=== PATIENT | female | born 2000 | race Caucasian/White ===

== ENCOUNTER 2024-09-08 20:47 | Emergency (ER) | payer OTHER ==
[2024-09-08 20:54] VITALS: RESP 18; TEMP 97.7
--- NOTE | 2024-09-08 21:22 | CT ---
EXAMINATION TYPE: CT brain allan escalante con DATE OF EXAM: 09/08/2024 COMPARISON: NONE HISTORY: Seizure. Trauma injury with pain CT DLP: 1248.1 mGycm. Automated Exposure Control for Dose Reduction was Utilized. TECHNIQUE: CT scan of the head and cervical spine are performed without contrast. FINDINGS: There is no acute intracranial hemorrhage, mass effect, or midline shift identified. The ventricles and sulci are within normal limits in size. [place]-white matter differentiation is maintain ed. The calvarium is intact. The globes are intact and the visualized sinuses are clear. Cervical spine is visualized in its entirety from C1 through upper thoracic levels and demonstrates s atisfactory alignment without evidence of acute fracture or dislocation. Prevertebral soft tissue ap pears within normal limits. The C1-C2 articulation is within normal limits on the coronal images. V ertebral body heights and disc space heights are within normal limits. Spinal canal is preserved. Imelda g apices show no pneumothorax. Normal sized thyroid gland is seen. IMPRESSION: 1. There is no acute fracture or dislocation evident in the cervical spine. 2. No acute intracranial hemorrhage or midline shift is seen. [facility], , 09/08/2024 9:20 PM
--- NOTE | 2024-09-08 21:36 | ED ---
General Adult HPI - General Chief complaint: Seizure Stated complaint: sesizure Time Seen by Provider: 09/08/24 21:11 Source: patient, EMS Mode of arrival: EMS Limitations: no limitations - History of Present Illness Initial comments: This patient is a 23-year-old woman who is sent here from [facility] to have evaluation after having had syncopal episode versus possible seizure. The patient reports that she had been walking in the facility and then the next thing she remembers was waking up on the ground with 2 of the staff members over her. She states she was subsequently shown video that showed her falling to the floor and being unconscious for just a few seconds, and then the staff was over her and speaking to her. She states that she thinks she remembers most of the details. She was not shown any footage of tonic-clonic movements. She did not have loss of continence. Patient states that it does feel like she struck the left occipital area of her head, but she denies significant pain there. She states it is only mildly tender if she touches the area. She is denying any neurologic symptoms. The patient is at [facility] for alcohol rehab but has been there since the . Her last drink was 2 days before that. She has not had withdrawal seizures. She does not feel anxious or tremulous. No history of seizure Onset/Timin -: hour(s) Location: head Severity scale (1-10): 1 Quality: dull Consistency: constant Improves with: none Worsens with: none Associated Symptoms: denies other symptoms Treatments Prior to Arrival: none - Related Data Home Medications Medication Instructions Recorded Confirmed Acetaminophen Tab [Tylenol] 650 mg PO Q4H PRN MDD 4 DOSES 09/09/24 09/09/24 Calcium Phos/D3/Magnesium/Zinc 1 tab PO TID PRN 09/09/24 09/09/24 [Rzudfze-Qgn-Hfxf-Vitamin D3] Docusate [Colace] 100 mg PO BID PRN 09/09/24 09/09/24 FLUoxetine HCL [PROzac] 20 mg PO DAILY 09/09/24 09/09/24 Ibuprofen [Motrin Ib] 600 mg PO Q6H PRN 09/09/24 09/09/24 Loperamide HCl [Imodium A-D] 4 mg PO QID PRN MDD 8 TABLETS 09/09/24 09/09/24 Melatonin 10 mg PO HS 09/09/24 09/09/24 Multivitamins, Thera [Multivitamin 1 tab PO DAILY 09/09/24 09/09/24 (formulary)] Mylanta 30 ml PO Q4H PRN 09/09/24 09/09/24 Thiamine [Vitamin B-1] 100 mg PO DAILY 09/09/24 09/09/24 busPIRone HCl [Buspar] 5 mg PO DAILY PRN 09/09/24 09/09/24 ondansetron HCL [Zofran] 8 mg PO Q6H PRN 09/09/24 09/09/24 traZODone HCL [Desyrel] 50 - 150 mg PO HS 09/09/24 09/09/24 Allergies Allergy/AdvReac Type Severity Reaction Status Date / Time No Known Allergies Allergy Verified 09/09/24 11:02 Review of Systems ROS Statement: Those systems with pertinent positive or pertinent negative responses have been documented in the HPI. ROS Other: All systems not noted in ROS Statement are negative. Constitutional: Denies: fever, chills, weakness Eyes: Denies: eye pain, vision change ENT: Denies: ear pain, hearing loss, epistaxis Respiratory: Denies: cough, dyspnea Cardiovascular: Denies: chest pain, palpitations, edema Gastrointestinal: Denies: abdominal pain, nausea, vomiting Genitourinary: Denies: dysuria, abnormal menses Musculoskeletal: Denies: back pain, arthralgia Skin: Denies: rash Neurological: Reports: as per HPI. Denies: headache, weakness, numbness Hematological/Lymphatic: Denies: easy bleeding Past Medical History Past Medical History: No Reported History History of Any Multi-Drug Resistant Organisms: None Reported Past Surgical History: No Surgical Hx Reported Past Psychological History: Anxiety, Depression Smoking Status: Current every day smoker Past Alcohol Use History: Daily, Heavy Past Drug Use History: Marijuana General Exam Limitations: no limitations General appearance: alert, in no apparent distress Head exam: Present: atraumatic, normocephalic Eye exam: Present: normal appearance. Absent: scleral icterus, conjunctival injection ENT exam: Present: normal oropharynx Neck exam: Present: normal inspection Respiratory exam: Present: normal lung sounds bilaterally. Absent: respiratory distress, wheezes, rales, rhonchi, stridor, accessory muscle use Cardiovascular Exam: Present: regular rate, normal rhythm, normal heart sounds. Absent: systolic murmur, diastolic murmur, rubs, gallop GI/Abdominal exam: Present: soft. Absent: distended, tenderness, guarding, rebound, rigid, mass Extremities exam: Present: normal inspection, normal capillary refill. Absent: pedal edema, calf tenderness Back exam: Present: normal inspection. Absent: CVA tenderness (R), CVA tenderness (L), vertebral tenderness Neurological exam: Present: alert, oriented X3, CN II-XII intact, normal gait. Absent: motor sensory deficit Skin exam: Present: warm, dry, intact, normal color. Absent: rash Course Vital Signs 09/08/24 09/08/24 20:48 23:41 Temperature 97.7 F Pulse Rate 68 75 Respiratory 18 18 Rate Blood Pressure 149/88 139/97 O2 Sat by Pulse 95 99 Oximetry Medical Decision Making - Medical Decision Making Patient is a 23-year-old woman here for evaluation of syncopal episode versus seizure. Based on the history that I am able to recover there does not appear t o be likelihood of seizure activity as the patient did not have prolonged unconsciousness or postictal period. There was no loss of continence. The patient is not manifesting any signs of withdrawal. Discussed with the patient the further evaluation and at this point I find no evidence of serious head injury at this point. The patient will be at a skilled care facility and can have neuro checks over the course of the post discharge.. Patient will be given close head injury instructions. The patient had CT scan of the brain that I interpreted as negative for acute bony injury, negative for acute intracranial hemorrhage, mass effect or midline shift Was pt. sent in by a medical professional or institution (, PA, [employer]IL W[employer]ER, urgent care, hospital, or half-way...) When possible be specific @ -[Patient is sent from [facility] Did you speak to anyone other than the patient for history (EMS, parent, family, police, friend...)? What history was obtained from this source @ -[No] Did you review nursing and triage notes (agree or disagree)? Why? @ -[I reviewed and agree with nursing and triage notes] Were old charts reviewed (outside hosp., previous admission, EMS record, old EKG, old radiological studies, urgent care reports/EKG's, half-way records)? Report findings @ -[No old charts were reviewed] Differential Diagnosis (chest pain, altered mental status, abdominal pain women, abdominal pain men, vaginal bleeding, weakness, fever, dyspnea, syncope, headache, dizziness, GI bleed, back pain, seizure, CVA, palpatations, mental health, musculoskeletal)? @ -[Differential Syncope: Valvular disease, hypertrophic cardiomyopathy, pulmonary embolism, tamponade, tachycardia, bradycardia, ND, hypovolemia, hemorrhage, dissection, anemia, intracranial hemorrhage, seizure, hypoglycemia, carbon monoxide poisoning, this is not meant to be an all-inclusive list. EKG interpreted by me (3pts min.). @ -[As above] X-rays interpreted by me (1pt min.). @ -[None done] CT interpreted by me (1pt min.). @ -[I interpreted as above U/S interpreted by me (1pt. min.). @ -[None done] What testing was considered but not performed or refused? (CT, X-rays, U/S, la bs)? Why? @ -[None] What meds were considered but not given or refused? Why? @ -[None] Did you discuss the management of the patient with other professionals (professionals i.e. , PA, [employer] W[employer]ER, lab, RT, psych nurse, social human services assistants, pediatric anesthesiologist, teacher, principal gifts officer, upper caser)? Give summary @ -[No] Was smoking cessation discussed for >3mins.? @ -[No] Was critical care preformed (if so, how long)? @ -[No] Were there social determinants of health that impacted care today? How? (Homelessness, low income, unemployed, alcoholism, drug addiction, transportation, low edu. Level, literacy, decrease access to med. care, correction, rehab)? @ -[No] Was there de-escalation of care discussed even if they declined (Discuss DNR or withdrawal of care, Hospice)? DNR status @ -[No] What co-morbidities impacted this encounter? (DM, HTN, Smoking, COPD, CAD, Cancer, CVA, ARF, Chemo, Hep., AIDS, mental health diagnosis, sleep apnea, morbid obesity)? @ -[Alcohol withdrawal Was patient admitted / discharged? Hospital course, mention meds given and route, prescriptions, significant lab abnormalities, going to OR and other pertinent info. @ -[See above Undiagnosed new problem with uncertain prognosis? @ -[No] Drug Therapy requiring intensive monitoring for toxicity (Heparin, Nitro, Insulin, Cardizem)? @ -[No] Were any procedures done? @ -[No] Diagnosis/symptom? @ -[Acute syncopal episode Acute, or Chronic, or Acute on Chronic? @ -[Acute Uncomplicated (without systemic symptoms) or Complicated (systemic symptoms)? @ -[Uncomplicated Side effects of treatment? @ -[No] Exacerbation, Progression, or Severe Exacerbation? @ -[No] Poses a threat to life or bodily function? How? (Chest pain, USA, ND, pneumonia, PE, COPD, DKA, ARF, appy, cholecystitis, CVA, Diverticulitis, Homicidal, Suicidal, threat to staff... and all critical care pts) @ -[No] All treatments are based on ideal body weight as in ED triage - Lab Data Result diagrams: 09/08/24 22:18 09/08/24 22:18 Lab Results 09/08/24 09/08/24 Range/Units 22:18 22:18 WBC 10.2 (3.8-10.6) k/uL RBC 3.77 L (3.80-5.40) m/uL Hgb 12.3 (11.4-16.0) gm/dL Hct 38.7 (34.0-46.0) % MCV 102.6 H (80.0-100.0) fL MCH 32.6 (25.0-35.0) pg MCHC 31.8 (31.0-37.0) g/dL RDW 15.3 (11.5-15.5) % Plt Count 123 L (150-450) k/uL MPV 8.6 Neutrophils % 73 % Lymphocytes % 21 % Monocytes % 4 % Eosinophils % 1 % Basophils % 0 % Neutrophils # 7.4 (1.3-7.7) k/uL Lymphocytes # 2.1 (1.0-4.8) k/uL Monocytes # 0.4 (0-1.0) k/uL Eosinophils # 0.1 (0-0.7) k/uL Basophils # 0.0 (0-0.2) k/uL Macrocytosis Slight Sodium 136 L (137-145) mmol/L Potassium 3.7 (3.5-5.1) mmol/L Chloride 101 (98-107) mmol/L Carbon Dioxide 24 (22-30) mmol/L Anion Gap 11 mmol/L BUN 9 (7-17) mg/dL Creatinine 0.58 (0.52-1.04) mg/dL Est GFR (CKD-EPI)AfAm >90 (>60 ml/min/1.73 sqM) Est GFR (CKD-EPI)NonAf >90 (>60 ml/min/1.73 sqM) Glucose 91 (74-99) mg/dL Calcium 9.5 (8.4-10.2) mg/dL Total Bilirubin 0.8 (0.2-1.3) mg/dL AST 37 H (14-36) U/L ALT 26 (4-34) U/L Alkaline Phosphatase 65 (38-126) U/L Total Protein 7.5 (6.3-8.2) g/dL Albumin 4.5 (3.5-5.0) g/dL Disposition Clinical Impression: Head injury Narrative: syncope versus possible seizure Disposition: HOME SELF-CARE Condition: Good Instructions (If sedation given, give patient instructions): Head Injury (ED) Is patient prescribed a controlled substance at d/c from ED?: No Referrals: Nonstaff,Physician [Primary Care Provider] - 1-2 days
[2024-09-08 22:26] LABS: Basophils % (A) 0 %; Eosinophils # (A) 0.1 k/uL (0-0.7); Eosinophils % (A) 1 %; HCT 38.7 % (34.0-46.0); HGB 12.3 gm/dL (11.4-16.0); Lymphocytes # (A) 2.1 k/uL (1.0-4.8); Lymphocytes % (A) 21 %; MCH 32.6 pg (25.0-35.0); MCHC 31.8 g/dL (31.0-37.0); MCV 102.6 fL (80.0-100.0); Macrocytosis Slight; Mean Platelet Volume 8.6; Monocytes # (A) 0.4 k/uL (0-1.0); Monocytes % (A) 4 %; Neutrophils # (A) 7.4 k/uL (1.3-7.7); Neutrophils % (A) 73 %; Platelet Count 123 k/uL (150-450); RBC 3.77 m/uL (3.80-5.40); RDW 15.3 % (11.5-15.5); WBC 10.2 k/uL (3.8-10.6)
[2024-09-08 22:38] LABS: ALT 26 U/L (4-34); AST 37 U/L (14-36); African American GFR (CKD) >90 (>60 ml/min/1.73 sqM); Albumin 4.5 g/dL (3.5-5.0); Alkaline Phosphatase 65 U/L (38-126); Anion Gap 11 mmol/L; Blood Urea Nitrogen 9 mg/dL (7-17); Calcium 9.5 mg/dL (8.4-10.2); Carbon Dioxide 24 mmol/L (22-30); Chloride 101 mmol/L (98-107); Glucose 91 mg/dL (74-99); Non-African American GFR(CKD) >90 (>60 ml/min/1.73 sqM); Potassium 3.7 mmol/L (3.5-5.1); Sodium 136 mmol/L (137-145); Total Bilirubin 0.8 mg/dL (0.2-1.3); Total Protein 7.5 g/dL (6.3-8.2)
[2024-09-08 23:43] VITALS: BP 139/97; PULSE 75
== END 2024-09-08 23:43 | disposition home or self-care (01) ==
LOC: EC 20:47
DX: S09.90XA Unspecified injury of head, initial encounter (principal); F10.239 Alcohol dependence with withdrawal, unspecified; F17.200 Nicotine dependence, unspecified, uncomplicated; X58.XXXA Exposure to other specified factors, initial encounter
CPT/HCPCS: 36415; 70450; 72125; 80053; 85025; 99285

== ENCOUNTER 2024-09-09 03:03 | Observation (INO) | payer OTHER ==
[2024-09-09] MEDS: LORazepam 2 MG/ML INJ IM STA (03:17)
--- NOTE | 2024-09-09 03:49 | ED ---
General Adult HPI - General Chief complaint: Psychiatric Symptoms Stated complaint: Petition Time Seen by Provider: 09/09/24 03:28 Source: EMS Mode of arrival: EMS Limitations: no limitations - History of Present Illness Initial comments: This patient is a 23-year-old woman who is here from [facility] to have reevaluation. The patient had been seen yesterday for syncopal episode versus seizure. Per the patient's description here it seem like her earlier episode was most likely to be syncope. The patient had gone back to [facility] where they felt she was not quite right and they sent her here she did have a another seizure. Patient currently denying headache. She is alert and responsive. Patient has no previous seizure history. She did stop drinking approximately 5 days ago. -: hour(s) Severity scale (1-10): 0 Consistency: now resolved Improves with: none Worsens with: none Associated Symptoms: other Treatments Prior to Arrival: none - Related Data Allergies Allergy/AdvReac Type Severity Reaction Status Date / Time No Known Allergies Allergy Verified 09/08/24 20:54 Review of Systems ROS Statement: Those systems with pertinent positive or pertinent negative responses have been documented in the HPI. ROS Other: All systems not noted in ROS Statement are negative. Constitutional: Denies: fever, chills, weakness Eyes: Denies: eye pain, vision change Respiratory: Denies: cough, dyspnea Cardiovascular: Denies: chest pain, palpitations, edema Gastrointestinal: Denies: abdominal pain, nausea, vomiting, diarrhea Genitourinary: Denies: dysuria, hematuria Musculoskeletal: Denies: back pain Skin: Denies: rash Neurological: Reports: other (Seizure). Denies: headache, weakness Psychiatric: Denies: anxiety Past Medical History Past Medical History: No Reported History History of Any Multi-Drug Resistant Organisms: None Reported Past Surgical History: No Surgical Hx Reported Past Psychological History: Anxiety, Depression Smoking Status: Current every day smoker Past Alcohol Use History: Daily, Heavy Past Drug Use History: Marijuana General Exam Limitations: no limitations General appearance: alert, in no apparent distress Head exam: Present: atraumatic, normocephalic Eye exam: Present: normal appearance. Absent: scleral icterus, conjunctival injection ENT exam: Present: normal oropharynx Neck exam: Present: normal inspection, full ROM. Absent: tenderness, meningismus Respiratory exam: Present: normal lung sounds bilaterally. Absent: respiratory distress, wheezes, rales, rhonchi, stridor, accessory muscle use Cardiovascular Exam: Present: regular rate, normal rhythm, normal heart sounds. Absent: systolic murmur, diastolic murmur, rubs, gallop GI/Abdominal exam: Present: soft. Absent: distended, tenderness, guarding, rebound, rigid, mass Extremities exam: Present: normal inspection, normal capillary refill. Absent: pedal edema, calf tenderness Back exam: Present: normal inspection. Absent: CVA tenderness (R), CVA tenderness (L) Neurological exam: Present: alert, oriented X3, CN II-XII intact. Absent: motor sensory deficit Skin exam: Present: warm, dry, intact, normal color. Absent: rash Course Vital Signs 09/09/24 09/09/24 03:05 04:00 Temperature 98.2 F Pulse Rate 92 Respiratory 18 Rate Blood Pressure 124/57 O2 Sat by Pulse 97 Oximetry Medical Decision Making - Medical Decision Making Patient is a 23-year-old woman with what sounds like 2 seizure episodes. She has returned to baseline. The patient will be admitted to have neurology consultation. Her other workup here did include CT that was unremarkable. - Lab Data Result diagrams: 09/09/24 04:58 09/09/24 04:58 Lab Results 09/09/24 09/09/24 Range/Units 04:58 04:58 WBC 11.2 H (3.8-10.6) k/uL RBC 3.49 L (3.80-5.40) m/uL Hgb 11.6 (11.4-16.0) gm/dL Hct 35.6 (34.0-46.0) % MCV 102.1 H (80.0-100.0) fL MCH 33.2 (25.0-35.0) pg MCHC 32.6 (31.0-37.0) g/dL RDW 15.6 H (11.5-15.5) % Plt Count 107 L (150-450) k/uL MPV 9.0 Neutrophils % 80 % Lymphocytes % 14 % Monocytes % 4 % Eosinophils % 1 % Basophils % 0 % Neutrophils # 9.0 H (1.3-7.7) k/uL Lymphocytes # 1.6 (1.0-4.8) k/uL Monocytes # 0.4 (0-1.0) k/uL Eosinophils # 0.2 (0-0.7) k/uL Basophils # 0.0 (0-0.2) k/uL Macrocytosis Slight Sodium 133 L (137-145) mmol/L Potassium 3.3 L (3.5-5.1) mmol/L Chloride 97 L (98-107) mmol/L Carbon Dioxide 26 (22-30) mmol/L Anion Gap 10 mmol/L BUN 7 (7-17) mg/dL Creatinine 0.59 (0.52-1.04) mg/dL Est GFR (CKD-EPI)AfAm >90 (>60 ml/min/1.73 sqM) Est GFR (CKD-EPI)NonAf >90 (>60 ml/min/1.73 sqM) Glucose 81 (74-99) mg/dL Calcium 9.6 (8.4-10.2) mg/dL Disposition Clinical Impression: Seizure Disposition: ADMITTED IP TO THIS HOSP Condition: Good Is patient prescribed a controlled substance at d/c from ED?: No
[2024-09-09] MEDS ORDERED: LORazepam 2 MG/ML INJ IV PRN ×3 (04:27)
[2024-09-09] MEDS ORDERED: chlordiazePOXIDE 25 MG CAP PO PRN (04:27)
[2024-09-09 05:05] LABS: Basophils % (A) 0 %; Eosinophils # (A) 0.2 k/uL (0-0.7); Eosinophils % (A) 1 %; HCT 35.6 % (34.0-46.0); HGB 11.6 gm/dL (11.4-16.0); Lymphocytes # (A) 1.6 k/uL (1.0-4.8); Lymphocytes % (A) 14 %; MCH 33.2 pg (25.0-35.0); MCHC 32.6 g/dL (31.0-37.0); MCV 102.1 fL (80.0-100.0); Macrocytosis Slight; Monocytes # (A) 0.4 k/uL (0-1.0); Monocytes % (A) 4 %; Neutrophils % (A) 80 %; Platelet Count 107 k/uL (150-450); RBC 3.49 m/uL (3.80-5.40); RDW 15.6 % (11.5-15.5); WBC 11.2 k/uL (3.8-10.6)
[2024-09-09] MEDS ORDERED: NALOXONE 0.4 MG/ML 1 ML VIAL IV PRN (05:05)
[2024-09-09 05:18] LABS: African American GFR (CKD) >90 (>60 ml/min/1.73 sqM); Anion Gap 10 mmol/L; Blood Urea Nitrogen 7 mg/dL (7-17); Calcium 9.6 mg/dL (8.4-10.2); Carbon Dioxide 26 mmol/L (22-30); Chloride 97 mmol/L (98-107); Glucose 81 mg/dL (74-99); Non-African American GFR(CKD) >90 (>60 ml/min/1.73 sqM); Potassium 3.3 mmol/L (3.5-5.1); Sodium 133 mmol/L (137-145)
[2024-09-09] MEDS: SODIUM CHLORIDE 0.9% 1,000 ML IV SCH (05:58)
[2024-09-09] MEDS: FAMOTIDINE 20 MG TAB PO SCH (11:46)
[2024-09-09] MEDS: POTASSIUM CHLORIDE ER 10 MEQ TAB.ER.PRT PO SCH (11:51)
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
--- NOTE | 2024-09-09 14:28 | P.CNNES ---
History of Present Illness Consult date: 09/09/24 Requesting physician: Js Matthews Reason for Consult: multiple seizure History of Present Illness: This is a 23-year-old woman who was transferred from [facility] because of seizure-like activity. Patient states that she has significant alcohol use and she was at [facility]. She stated that 2 days ago while at [facility] she had a seizure-like activity that she was notified but does not recall the episodes. She denies any urinary or bowel incontinence. There is no tongue bite. She denies any episode yesterday but per the ED physician the patient came to our facility for reevaluation because syncopal episode versus seizure. Patient denies any warning signs. Denies any focal weakness, numbness, head ache. She feels back to baseline. Denies any prior history of seizures in the past. She stated her last drink she thinks was about 9 to 10 days ago from yesterday. She does use marijuana. According to the patient yesterday she was notified that she was rude to the staff members but denies having any seizure or passing out episode yesterday. ED physician her last drink was approximately 5 days ago. Some of the workup during this hospital visit consisted of: I reviewed the lab workup. CT of the head and CT cervical spine on 09/08/2024 is reported as no acute fracture or dislocation in the cervical spine. No acute intracranial hemorrhage or midline shift is seen. I personally reviewed the CT of the head and agree with the report. Review of Systems As per HPI. Past Medical History Past Medical History: No Reported History History of Any Multi-Drug Resistant Organisms: None Reported Past Surgical History: No Surgical Hx Reported Past Psychological History: Anxiety, Depression Smoking Status: Current every day smoker Past Alcohol Use History: Daily, Heavy Past Drug Use History: Marijuana Medications and Allergies Home Medications Medication Instructions Recorded Confirmed Type Acetaminophen Tab [Tylenol] 650 mg PO Q4H PRN MDD 4 DOSES 09/09/24 09/09/24 History Calcium Phos/D3/Magnesium/Zinc 1 tab PO TID PRN 09/09/24 09/09/24 History [Cflwzzl-Cue-Eorw-Vitamin D3] Docusate [Colace] 100 mg PO BID PRN 09/09/24 09/09/24 History FLUoxetine HCL [PROzac] 20 mg PO DAILY 09/09/24 09/09/24 History Ibuprofen [Motrin Ib] 600 mg PO Q6H PRN 09/09/24 09/09/24 History Loperamide HCl [Imodium A-D] 4 mg PO QID PRN MDD 8 TABLETS 09/09/24 09/09/24 History Melatonin 10 mg PO HS 09/09/24 09/09/24 History Multivitamins, Thera [Multivitamin 1 tab PO DAILY 09/09/24 09/09/24 History (formulary)] Mylanta 30 ml PO Q4H PRN 09/09/24 09/09/24 History Thiamine [Vitamin B-1] 100 mg PO DAILY 09/09/24 09/09/24 History busPIRone HCl [Buspar] 5 mg PO DAILY PRN 09/09/24 09/09/24 History ondansetron HCL [Zofran] 8 mg PO Q6H PRN 09/09/24 09/09/24 History traZODone HCL [Desyrel] 50 - 150 mg PO HS 09/09/24 09/09/24 History Allergies Allergy/AdvReac Type Severity Reaction Status Date / Time No Known Allergies Allergy Verified 09/09/24 11:02 Physical Examination - Vital Signs Vital Signs: Vital Signs Temp Pulse Resp BP Pulse Ox 09/09/24 11:20 84 22 133/93 98 09/09/24 07:41 66 20 129/86 96 09/09/24 04:00 124/57 09/09/24 03:05 98.2 F 92 18 97 Intake and Output 09/08/24 09/09/24 09/09/24 22:59 06:59 14:59 Other: Weight 68.039 kg GENERAL: The patient is lying in bed and is not in acute distress. NEUROLOGICAL: Higher mental function: The patient is awake, alert, oriented to self, place and time. Patient is following commands. No aphasia and no neglect. Cranial nerves: The pupils are round, equal and reactive to light and accommodation. Visual pireson are full to confrontation throughout. Extraocular movement is intact no nystagmus is noted. Facial sensation is normal to touch throughout. The facial strength is normal throughout. Hearing is normal bilaterally to hand rub. Tongue is midline and moved [id number] without any difficulty. No dysarthria is noted. Shoulder shrug is normal bilaterally. Motor: The strength is 5 over 5 throughout. Normal tone and bulk. Cerebellum: Normal finger to nose heel to thurman bilaterally. Sensation: Sensation is normal to touch throughout. Reflexes (right/left): 2+ throughout. Plantars are downgoing bilaterally. Results - Laboratory Findings CBC and BMP: 09/09/24 04:58 09/09/24 04:58 Abnormal Lab Findings: Abnormal Labs 09/09/24 02 04:58 04:58 WBC 11.2 H RBC 3.49 L MCV 102.1 H RDW 15.6 H Plt Count 107 L Neutrophils # 9.0 H Sodium 133 L Potassium 3.3 L Chloride 97 L Assessment and Plan Assessment: This is a 23-year-old woman who is [facility] for because of her alcohol use who presents because of seizure-like activity patient stated that she was notified she had seizure-like activity 2 days ago but yesterday she was notified that she had an attitude problem towards the staff but per the ED physician she had a syncopal episode yesterday or seizure at the facility. Likely provoked seizure due to alcohol withdrawal. She had a CT of the head and CT cervical spine on 09/08/2024 which was unremarkable. Plan: I will not start patient on seizure medication since this seems more provoked. But if she continues to have seizure-like activity then recommend placing the patient on Keppra 500 mg twice a day Preliminary EEG is negative for any seizure or discharges Is on [facility] protocol. Patient received Ativan 2 mg once in the ED. She is on thiamine 100 mg daily Seizure precautions seizure pads Per [facility] because of the seizure, to avoid driving for 6 months until seizure-free, avoid heights, avoid swimming assisted or using heavy machinery Will defer the rest of the medical management to primary other specialist Recommend the patient to follow-up with a neurologist as an outpatient within 2 to 3 weeks. Otherwise no additional neurological workup. Thank you for the consultation Time with Patient: Greater than 30
[2024-09-09 15:01] VITALS: BP 123/95; PULSE 73; RESP 18; TEMP 98.8
--- NOTE | 2024-09-09 21:35 | EEG ---
ELECTROENCEPHALOGRAM REPORT CLINICAL HISTORY: This is a 23-year-old woman with new onset seizure-like activity. The video EEG is obtained to evaluate for seizure epileptiform activity. RELEVANT MEDICATION: Ativan. EEG TYPE: This is a routine 21-channel EEG with video using the 10/20 electrode placement system. DESCRIPTION: The patient was in a drowsy state throughout predominant of the study. It is hard to assess wakefulness state since the patient was in a drowsy state. There appears to be diffuse excessive beta activity, possibly due to stage 2 sleep. There is no focal slowing. Interictal and ictal is none. ACTIVATION PROCEDURE: Photic stimulation and hyperventilation are not performed. CLINICAL INTERPRETATION: This is a normal study in drowsy state and stage II sleep. Unable to appreciate the awake state since the patient was in a drowsy state most of the study. There is no focal slowing, epileptiform discharge, or seizure on the EEG. A normal routine EEG does not rule out underlying epilepsy. Clinical correlation is recommended. MICHELLE / NATALIEN: [id number] / MTDD
[2024-09-10] MEDS ORDERED: PANTOPRAZOLE 40 MG TABLET PO SCH (07:30)
[2024-09-10] MEDS ORDERED: THIAMINE 100 MG TAB PO SCH (09:00)
--- NOTE | 2024-09-12 21:12 | P.DS ---
Providers Date of admission: 09/09/24 05:07 Attending physician: John Hernadez MD Consults: 09/09/24 05:05 Consult Physician Routine Consulting Provider: Chet Galeana Consult Reason/Comments: multiple seizures Do you want consulting provider notified?: Yes Primary care physician: Physician Nonstaff Hospital Course: Final Diagnosis Acute alcohol withdrawal Seizure x 2 related to above Hypovolemic hyponatremia Hypokalemia Leukocytosis Macrocytosis Chronic alcoholism Chronic and ongoing nicotine use Anxiety/depression Marijuana use Discharge Disposition Patient is stable for return to [facility]. No antiseizure medications recommended on discharge. Patient was cleared by neurology. Follow up with PCP; Dr. Tamar Alan. Hospital Course This is a 23-year-old female with medical history significant for chronic alcoholism anxiety depression and and every day smoker reports to smoking 2 to 3 cigarettes per day. patient also admits to drinking multiple four lokos daily and has been on and off binge drinking for the last 2.5 years. She vapes and smokes marijuana daily. Patient comes into the hospital around 3 AM from [facility] [address] [facility] due to a syncopal episode versus seizure. Patient has had 2 seizure-like episodes and her last drink of alcohol was 5 days ago. The first seizure was yesterday and was brought to the [facility] ER she was discharged back to [facility]. Patient then reports she was walking back from the patio with her roommate when she had a second seizure like activity. Patient then returned to the Er for evaluation. The ER patient got 2 mg of Ativan. She was admitted to the hospital under internal medicine for alcohol withdrawal and monitoring. Neurology was consulted for the multiple seizures. EEG has been ordered and per neurology as reviewed and no epileptiform or seizure like activity was noted. The seizures are most likely related to her alcohol withdrawal. She has started on IV Ativan CIWA protocol thiamine and supplementation and Librium. Initial blood work reveals a white blood cell count 11.2, MCV 102.1, sodium 133, potassium 3.3. Patient has had no further seizure like activity noted. Was cleared by neurology and patient was informed of [place] law of no driving for 6 months or until seizure free. Patient will return to [place]. Please see medication reconciliation for a list of current medications. Thank you for allowing us to participate in the care of this patient. The impression and plan of care has been dictated by Sisi Morris Nurse Practitioner as directed. Dr. Alex MD I have performed a history and physical examination and medical decision making of this patient, discussed the same with the dictator, and agree with the dictators assessment and plan as written, documented as a scribe. Based on total visit time, I have performed more than 50% of this visit. Patient Condition at Discharge: Good Plan - Discharge Summary New Discharge Prescriptions: Continue ondansetron HCL [Zofran] 8 mg PO Q6H PRN PRN Reason: Nausea Acetaminophen Tab [Tylenol] 650 mg PO Q4H PRN MDD 4 DOSES PRN Reason: Pain Or Fever > 100.5 Multivitamins, Thera [Multivitamin (formulary)] 1 tab PO DAILY Melatonin 10 mg PO HS Ibuprofen [Motrin Ib] 600 mg PO Q6H PRN PRN Reason: Pain Or Fever > 100.5 FLUoxetine HCL [PROzac] 20 mg PO DAILY Mylanta 30 ml PO Q4H PRN PRN Reason: Gi Upset traZODone HCL [Desyrel] 50 - 150 mg PO HS Thiamine [Vitamin B-1] 100 mg PO DAILY Loperamide HCl [Imodium A-D] 4 mg PO QID PRN MDD 8 TABLETS PRN Reason: Diarrhea Docusate [Colace] 100 mg PO BID PRN PRN Reason: Constipation Calcium Phos/D3/Magnesium/Zinc [Epdaphs-Deb-Zeiw-Vitamin D3] 1 tab PO TID PRN PRN Reason: CRAMPS busPIRone HCl [Buspar] 5 mg PO DAILY PRN PRN Reason: Anxiety Discontinued Chlorpheniramine Maleate [Chlor-Trimeton] 4 mg PO Q4H PRN PRN Reason: Allergy Symptoms cloNIDine HCL [Catapres] 0.1 - 0.3 mg PO Q4H PRN PRN Reason: BP >160/100 Hyoscyamine Sulfate [Levsin] 0.125 mg PO QID PRN PRN Reason: CRAMPS Discharge Medication List Acetaminophen Tab [Tylenol] 650 mg PO Q4H PRN MDD 4 DOSES 09/09/24 [History] Calcium Phos/D3/Magnesium/Zinc [Ucsdmvq-Ngd-Rrtv-Vitamin D3] 1 tab PO TID PRN 09/09/24 [History] Docusate [Colace] 100 mg PO BID PRN 09/09/24 [History] FLUoxetine HCL [PROzac] 20 mg PO DAILY 09/09/24 [History] Ibuprofen [Motrin Ib] 600 mg PO Q6H PRN 09/09/24 [History] Loperamide HCl [Imodium A-D] 4 mg PO QID PRN MDD 8 TABLETS 09/09/24 [History] Melatonin 10 mg PO HS 09/09/24 [History] Multivitamins, Thera [Multivitamin (formulary)] 1 tab PO DAILY 09/09/24 [History] Mylanta 30 ml PO Q4H PRN 09/09/24 [History] Thiamine [Vitamin B-1] 100 mg PO DAILY 09/09/24 [History] busPIRone HCl [Buspar] 5 mg PO DAILY PRN 09/09/24 [History] ondansetron HCL [Zofran] 8 mg PO Q6H PRN 09/09/24 [History] traZODone HCL [Desyrel] 50 - 150 mg PO HS 09/09/24 [History] Follow up Appointment(s)/Referral(s): Nonstaff,Physician [Primary Care Provider] - 1-2 days [facility] [NON-STAFF] - 1 Week Ambulatory/Diagnostic Orders: Basic Metabolic Panel [LAB.AMB] Time Frame: 3 Days, Location: None Selected Activity/Diet/Wound Care/Special Instructions: Return to [facility] [address] [place] [address] Follow up with your PCP Dr. Tamar Alan. Follow up with a neurologist on discharge Repeat your labs in 2 to 3 days. Discharge Disposition: HOME SELF-CARE
== END 2024-09-09 16:16 | disposition home or self-care (01) ==
LOC: EC 03:03 → 3SCARD 05:07
PROVIDERS: ADMIT Internal Medicine; ATTEND Internal Medicine
DX: F10.239 Alcohol dependence with withdrawal, unspecified (principal); E86.1 Hypovolemia; E87.1 Hypo-osmolality and hyponatremia; E87.6 Hypokalemia; D72.829 Elevated white blood cell count, unspecified; D75.89 Other specified diseases of blood and blood-forming organs; F41.9 Anxiety disorder, unspecified; F32.A Depression, unspecified; F17.210 Nicotine dependence, cigarettes, uncomplicated; F12.90 Cannabis use, unspecified, uncomplicated; Z79.899 Other long term (current) drug therapy
CPT/HCPCS: 82075; 96360; 96361; 96372; 99285; 36415; 95819; 80048; 82607; 82746; 85025; G0378; J2060